=== PATIENT | male | born 2000 | race Caucasian/White ===

== ENCOUNTER 2021-05-08 14:15 | Emergency (ER) | payer MEDICAID, OTHER ==
[~2021-05-08] VITALS: Ht 188 cm; Wt 90.7 kg
[2021-05-08 14:42] VITALS: BP 159/82
[2021-05-08] MEDS ORDERED: ACETAMINOPHEN 500 MG TAB PO ONE (16:15)
[2021-05-08] MEDS ORDERED: IBUP800T27 PO (16:41)
== END 2021-05-08 16:48 | disposition home or self-care (01) ==
LOC: ER 14:26
DX: R51.9 Headache, unspecified (principal); R42 Dizziness and giddiness; F12.10 Cannabis abuse, uncomplicated; R41.82 Altered mental status, unspecified; V43.52XA Car driver injured in collision with other type car in traffic accident, initial encounter; Y93.89 Activity, other specified; Y92.488 Other paved roadways as the place of occurrence of the external cause; Y99.8 Other external cause status
CPT/HCPCS: 70450